=== PATIENT | female | born 1985 | race Caucasian/White ===

== ENCOUNTER 2018-04-19 00:18 | Emergency (ER) | payer MEDICAID ==
[~2018-04-19] VITALS: Ht 170.2 cm; Wt 150.4 kg
[~2018-04-19 00:18] MED LIST: ALBUTEROL INH INH; DOCU-131 PO; HYDR-3237 PO; IBUP-1222 PO; NONE PER PT
[2018-04-19] MEDS ORDERED: DIPHENHYDRAMINE 50 MG/ML, 1ML ONE (00:44)
[2018-04-19] MEDS ORDERED: METOCLOPRAMIDE 5 MG/ML, 2ML ONE (00:45)
[2018-04-19] MEDS ORDERED: DIPHENHYDRAMINE 50 MG/ML, 1ML IVPush ONE (01:00)
[2018-04-19] MEDS ORDERED: SODIUM CHLORIDE FLUSH 10ML SYR IVF ONE (01:00)
[2018-04-19] MEDS ORDERED: SODIUM CHLORIDE 0.9% 1,000ML IVBOLUS ONE (01:00)
[2018-04-19] MEDS ORDERED: METOCLOPRAMIDE 5 MG/ML, 2ML IVPush ONE (01:00)
[2018-04-19 01:53] VITALS: BP 159/81
== END 2018-04-19 02:04 | disposition home or self-care (01) ==
LOC: ED 00:52
DX: R51 Headache (principal); Z90.49 Acquired absence of other specified parts of digestive tract; J45.909 Unspecified asthma, uncomplicated; R11.2 Nausea with vomiting, unspecified
CPT/HCPCS: 96361; 96374; 96375; 99284; J1200; J2765; J7030

== ENCOUNTER 2020-03-02 22:40 | Emergency (ER) | payer MEDICAID ==
[~2020-03-02] VITALS: Ht 170.2 cm; Wt 150.0 kg
[2020-03-02] MEDS ORDERED: KETOROLAC 30 MG/1 ML IVPush ONE (23:00)
[2020-03-02] MEDS ORDERED: SODIUM CHLORIDE 0.9% 1,000ML IVBOLUS ONE (23:00)
[2020-03-02] MEDS ORDERED: SODIUM CHLORIDE FLUSH 10ML SYR IVF ONE (23:00)
[2020-03-02] MEDS ORDERED: KETOROLAC 30 MG/1 ML ONE (23:15)
[2020-03-02 23:20] LABS: BASOPHILS # (AUTO) 0.03 x10^3/uL (0-0.1); BASOPHILS % (AUTO) 0 % (0-1); EOSINOPHILS # (AUTO) 0.08 x10^3/uL (0-0.4); EOSINOPHILS % (AUTO) 1 % (1-7); LYMPHOCYTES # (AUTO) 1.26 x10^3/uL (1-3.4); LYMPHOCYTES % (AUTO) 16 % (22-44); MD NO; MEAN CORPUSCULAR HEMOGLOBIN 28.2 pg (27.0-34.8); MEAN CORPUSCULAR HGB CONC 33.2 g/dL (32.4-35.8); MEAN CORPUSCULAR VOLUME 84.9 fL (80-100); MEAN PLATELET VOLUME 11.5 fL (7.4-10.4); MONOCYTES # (AUTO) 0.31 x10^3/uL (0.2-0.8); MONOCYTES % (AUTO) 4 % (2-9); NEUTROPHILS # (AUTO) 6.12 x10^3/uL (1.8-6.8); NEUTROPHILS % (AUTO) 78 % (42-75); PLATELET COUNT 183 x10^3/uL (130-400); RED BLOOD COUNT 4.72 x10^6/uL (3.82-5.3); RED CELL DISTRIBUTION WIDTH 14.7 % (9.6-15.2)
[2020-03-02 23:33] LABS: ALANINE AMINOTRANSFERASE 40 U/L (12-78); ALBUMIN 3.7 g/dL (3.4-5.0); ANION GAP 7 mmol/L (5-15); CHLORIDE 108 mmol/L (98-107)
[2020-03-02 23:37] LABS: ALKALINE PHOSPHATASE 88 U/L (45-117); BILIRUBIN,TOTAL 0.5 mg/dL (0.2-1.0); CREATININE 0.82 mg/dL (0.55-1.02); TOTAL PROTEIN 7.9 g/dL (6.4-8.2)
[2020-03-02] MEDS ORDERED: AMOXICILLIN 500 MG CAPSULE PO STA (23:37)
[2020-03-03 00:02] VITALS: BP 138/76
== END 2020-03-03 00:04 | disposition home or self-care (01) ==
LOC: ED 23:33
DX: H66.92 Otitis media, unspecified, left ear (principal); Z20.828 Contact with and (suspected) exposure to other viral communicable diseases; J02.8 Acute pharyngitis due to other specified organisms; J06.9 Acute upper respiratory infection, unspecified; B97.89 Other viral agents as the cause of diseases classified elsewhere; J45.909 Unspecified asthma, uncomplicated; Z90.89 Acquired absence of other organs; Z90.49 Acquired absence of other specified parts of digestive tract
CPT/HCPCS: 36415; 71045; 80053; 84703; 85025; 87081; 87147; 87880; 96374; 99284; J1885; J7030

== ENCOUNTER 2020-04-12 20:07 | Emergency (ER) | payer MEDICAID ==
[~2020-04-12] VITALS: Ht 170.2 cm; Wt 145.0 kg
--- NOTE | 2020-04-12 20:25 | NUR ---
THIS IS A 34 YO FEMALE BIB [facility] FOR INTERMITTENT DIZZINESS AND LIGHTHEADED FOR THE PAST WEEK, CONTINUOUS TODAY. DENIES N/V/D. A&OX4, PERRLA. C/O EPIGASTRIC PAIN, "PAIN WHERE MY OVARIES ARE", LMP 1 WEEK AGO. C/O CONSTANT REILLY STARTING TODAY RATED 10/10. BGL IN FIELD 104. ALL MONITORING IN PLACE, SINUS TACHYCARDIC AT 104, VSS, NADN. CALL LIGHT IN REACH. ERP TO ROOM FOR EVAL
[2020-04-12] MEDS ORDERED: ONDANSETRON ODT 4 MG PO ONE (20:30)
[2020-04-12] MEDS ORDERED: MECLIZINE CHEWABLE 25 MG TAB PO ONE (20:30)
[2020-04-12] MEDS ORDERED: MECLIZINE CHEWABLE 25 MG TAB ONE (20:52)
[2020-04-12] MEDS ORDERED: ONDANSETRON ODT 4 MG ONE (20:52)
[2020-04-12 21:07] LABS: BASOPHILS # (AUTO) 0.05 x10^3/uL (0-0.1); BASOPHILS % (AUTO) 1 % (0-1); EOSINOPHILS # (AUTO) 0.16 x10^3/uL (0-0.4); EOSINOPHILS % (AUTO) 3 % (1-7); LYMPHOCYTES # (AUTO) 1.73 x10^3/uL (1-3.4); LYMPHOCYTES % (AUTO) 27 % (22-44); MD NO; MEAN CORPUSCULAR HGB CONC 32.5 g/dL (32.4-35.8); MEAN CORPUSCULAR VOLUME 86.1 fL (80-100); MEAN PLATELET VOLUME 11.8 fL (7.4-10.4); MONOCYTES # (AUTO) 0.37 x10^3/uL (0.2-0.8); MONOCYTES % (AUTO) 6 % (2-9); NEUTROPHILS % (AUTO) 65 % (42-75); PLATELET COUNT 187 x10^3/uL (130-400); RED BLOOD COUNT 4.28 x10^6/uL (3.82-5.3); RED CELL DISTRIBUTION WIDTH 14.7 % (9.6-15.2)
--- NOTE | 2020-04-12 21:08 | NUR ---
UA COLLECTED AND SENT. PATIENT MEDICATED PER EMAR FOR DIZZINESS, DENIES NAUSEA AND DOES NOT WANT ZOFRAN AT THIS TIME
[2020-04-12 21:15] LABS: MICROSCOPIC NOT IND
[2020-04-12 21:18] LABS: ALANINE AMINOTRANSFERASE 25 U/L (12-78); ALBUMIN 3.4 g/dL (3.4-5.0); ANION GAP 5 mmol/L (5-15); CALCIUM 8.7 mg/dL (8.5-10.1); CHLORIDE 106 mmol/L (98-107); CREATININE 0.73 mg/dL (0.55-1.02)
[2020-04-12 21:28] LABS: ALKALINE PHOSPHATASE 71 U/L (45-117); BILIRUBIN,TOTAL 0.4 mg/dL (0.2-1.0); FREE T4 (FREE THYROXINE) 0.93 ng/dL (0.76-1.46)
[2020-04-12 21:38] VITALS: BP 110/69
--- NOTE | 2020-04-12 21:55 | NUR ---
Patient ambulatory with steady gait to restroom. ERP in room
[2020-04-12] MEDS ORDERED: IBUPROFEN 600 MG TABLET ONE (22:18)
[2020-04-12] MEDS ORDERED: IBUPROFEN 600 MG TABLET PO ONE (22:30)
--- NOTE | 2020-04-12 22:44 | NUR ---
Patient/Caregiver given discharge instructions and they have confirmed that they understand the instructions. Patient ambulatory with steady gait.
== END 2020-04-12 22:48 | disposition home or self-care (01) ==
LOC: ED 22:23
DX: R42 Dizziness and giddiness (principal); R55 Syncope and collapse; R51 Headache; R94.31 Abnormal electrocardiogram [ECG] [EKG]; J45.909 Unspecified asthma, uncomplicated; Z90.89 Acquired absence of other organs; Z90.49 Acquired absence of other specified parts of digestive tract
CPT/HCPCS: 36415; 80053; 81003; 84439; 84443; 85025; 93005; 99284

== ENCOUNTER 2020-08-05 14:48 | Emergency (ER) | payer MEDICAID ==
[~2020-08-05] VITALS: Ht 170.2 cm; Wt 142.5 kg
[2020-08-05 15:03] VITALS: BP 125/72
[2020-08-05] MEDS ORDERED: KETOROLAC 30 MG/1 ML IVPush ONE (15:30)
[2020-08-05] MEDS ORDERED: SODIUM CHLORIDE FLUSH 10ML SYR IVF ONE (15:30)
[2020-08-05] MEDS ORDERED: SODIUM CHLORIDE 0.9% 1,000ML IVBOLUS ONE (15:30)
[2020-08-05] MEDS ORDERED: PROCHLORPERAZINE 5 MG/ML, 2ML IVPush ONE (15:30)
[2020-08-05] MEDS ORDERED: DIPHENHYDRAMINE 50 MG/ML, 1ML IVPush ONE (15:30)
--- NOTE | 2020-08-05 15:36 | NUR ---
C/O DAILY HEADACHE "FOR A VERY LONG TIME, BUT REALLY BAD THE PAST FEW DAYS". DENIES BEING OUTSIDE FREQUENTLY LATELY. IBUPROFEN 800MG TAKEN - LAST DOSE YESTERDAY. C/O DIZZINESS X "A FEW DAYS". HX MIGRAINES - NO MIGRAINE RX. REPORTS "SLIGHTLY BLURRY VISION ON AND OFF" - DENIES BLURRINESS CURRENTLY. RESP EVEN & UNLABORED, SPEECH SLOW & CLEAR, SKIN WNL .
[2020-08-05] MEDS ORDERED: DIPHENHYDRAMINE 50 MG/ML, 1ML ONE (16:03)
[2020-08-05] MEDS ORDERED: KETOROLAC 30 MG/1 ML ONE (16:03)
[2020-08-05] MEDS ORDERED: PROCHLORPERAZINE 5 MG/ML, 2ML ONE (16:03)
--- NOTE | 2020-08-05 16:05 | NUR ---
ARRIVED AT PT ROOM W/ ORDERED MEDICATIONS AND IV SUPPLIES. PT STANDING IN DOORWAY, STATES "I'M LEAVING" "IT'S TAKEN TOO FUCKING LONG". INFORMED PT I HAD THE ORDERED MEDICATIONS. PT INSISTING ON LEAVING; AMBULATORY TO DC DESK AREA.
--- NOTE | 2020-08-05 16:08 | NUR ---
DR LEIVA NOTIFIED OF PT STATUS
== END 2020-08-05 16:10 | disposition home or self-care (01) ==
LOC: ED 15:54
DX: G43.001 Migraine without aura, not intractable, with status migrainosus (principal); R42 Dizziness and giddiness; H53.8 Other visual disturbances; R94.31 Abnormal electrocardiogram [ECG] [EKG]; J45.909 Unspecified asthma, uncomplicated; Z90.89 Acquired absence of other organs; Z90.49 Acquired absence of other specified parts of digestive tract
CPT/HCPCS: 93005; 99283

== ENCOUNTER 2021-01-21 17:22 | Emergency (ER) | payer MEDICAID ==
[~2021-01-21] VITALS: Ht 170.2 cm; Wt 160.0 kg
--- NOTE | 2021-01-21 18:34 | NUR ---
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 PT RETURNED TO LOBBY W/O INCIDENT. RESP EVEN AND UNLABORED, SERENE.
--- NOTE | 2021-01-21 19:49 | NUR ---
PT TO TRIAGE FOR VS RECHECK AT THIS TIME. PT PROVIDED ICE PACK FOR COMFORT
--- NOTE | 2021-01-21 20:05 | NUR ---
PT BACK TO THIS RNS ROOM AT THIS TIME. PT NAD, APPEARS COMFORTABLE, VSS, PLACED ON SPO2/BP MONITORING. PT REPORTS WALKING AND TRIPPED IN POTHOLE, LEFT ANKLE HAS PAIN AND PT REPORTS SWELLING. ICE APPLIED. PT SO AT BS, WCTM.
[2021-01-21] MEDS ORDERED: HYDROcodone/APAP 5/325 TABLET ONE (20:20)
--- NOTE | 2021-01-21 20:25 | NUR ---
pt medicated per mar for pain, 5 rights reviewed, nad, air stirrup unable to fit ankle, erp aware wctm.
[2021-01-21] MEDS ORDERED: HYDROcodone/APAP 5/325 TABLET PO ONE (20:30)
[2021-01-21 20:58] VITALS: BP 128/66
--- NOTE | 2021-01-21 21:06 | NUR ---
Patient given discharge instructions and they have confirmed that they understand the instructions. Patient ambulatory with steady gait. NAD, DENIES ADDITIONAL NEEDS OR QUESTIONS, NO PERSONAL BELONGINGS LEFT IN ROOM AFTER DC.
== END 2021-01-21 21:29 | disposition home or self-care (01) ==
LOC: ED 20:19
DX: S93.402A Sprain of unspecified ligament of left ankle, initial encounter (principal); M79.89 Other specified soft tissue disorders; J45.909 Unspecified asthma, uncomplicated; G43.909 Migraine, unspecified, not intractable, without status migrainosus; Z90.89 Acquired absence of other organs; Z90.49 Acquired absence of other specified parts of digestive tract; W01.0XXA Fall on same level from slipping, tripping and stumbling without subsequent striking against object, initial encounter; Y93.89 Activity, other specified; Y92.89 Other specified places as the place of occurrence of the external cause; Y99.8 Other external cause status
CPT/HCPCS: 99283

== ENCOUNTER 2021-05-25 17:09 | Emergency (ER) | payer MEDICAID ==
[~2021-05-25] VITALS: Ht 170.2 cm; Wt 157.0 kg
[2021-05-25 17:17] VITALS: BP 144/87
--- NOTE | 2021-05-25 20:07 | NUR ---
NIL X 2
== END 2021-05-25 20:09 | disposition left against medical advice (07) ==
LOC: ED 17:30
DX: M25.572 Pain in left ankle and joints of left foot (principal); X50.1XXA Overexertion from prolonged static or awkward postures, initial encounter; Y93.89 Activity, other specified; Y92.89 Other specified places as the place of occurrence of the external cause; Y99.8 Other external cause status
CPT/HCPCS: 99283